=== PATIENT | female | born 1960 | race Hispanic/Latino ===

== ENCOUNTER → 2023-10-03 10:01 | Outpatient (REF) | payer OTHER, SELFPAY | LOC: RAD 10:01 | PROVIDERS: ATTENDING PHYSICIAN Nurse Practitioner Adult Health | DX: M25.812 Other specified joint disorders, left shoulder (principal) | CPT/HCPCS: 73030 ==

== ENCOUNTER → 2023-10-26 10:12 | Outpatient (REF) | payer OTHER, SELFPAY ==
[2023-10-26 11:01] LABS: ALT (SGPT) 17 U/L (0-35); AST (SGOT) 22 U/L (14-36); Albumin 4.3 g/dl (3.5-5.0); Alkaline Phosphatase 75 U/L (38-126); Blood Urea Nitrogen 14 mg/dl (7-17); Calcium 9.2 mg/dl (8.4-10.2); Carbon Dioxide 24 mmol/L (22-30); Chloride 104 mmol/L (98-107); Glucose 148 mg/dl (70-99); HDL Cholesterol 38 mg/dl; LDL Cholesterol, Calculated 128 mg/dl; Potassium 4.4 mmol/L (3.5-5.1); Sodium 138 mmol/L (135-145); Total Bilirubin 0.7 mg/dl (0.2-1.3); Total Cholesterol 214 mg/dl (50-199); Triglyceride 241 mg/dl (10-149); Very Low Density Lipoprotein 48 mg/dl (0-30); eGFR > 60.00
[2023-10-26 11:17] LABS: Vitamin D, 25-OH*** 24.3 ng/mL (30-80)
[2023-10-26 11:41] LABS: Glycohemoglobin (HgbA1c) 6.7 % (4.0-5.6)
[2023-10-26 12:33] LABS: Microalbumin, Random Urine <0.6 mg/dl (0.6-1.7)
== END ==
LOC: CLINIC 10:12
PROVIDERS: ATTENDING PHYSICIAN Nurse Practitioner Adult Health
DX: E55.9 Vitamin D deficiency, unspecified (principal); E11.69 Type 2 diabetes mellitus with other specified complication; E78.5 Hyperlipidemia, unspecified
CPT/HCPCS: 80053; 80061; 82043; 82306; 82570; 83036

== ENCOUNTER → 2024-02-06 09:28 | Outpatient (REF) | payer OTHER, SELFPAY ==
[2024-02-06 10:26] LABS: Glycohemoglobin (HgbA1c) 6.8 % (4.0-5.6)
[2024-02-06 10:41] LABS: ALT (SGPT) 18 U/L (0-35); AST (SGOT) 27 U/L (14-36); Albumin 4.4 g/dl (3.5-5.0); Alkaline Phosphatase 69 U/L (38-126); Blood Urea Nitrogen 17 mg/dl (7-17); Calcium 9.3 mg/dl (8.4-10.2); Carbon Dioxide 25 mmol/L (22-30); Chloride 106 mmol/L (98-107); Glucose 105 mg/dl (70-99); HDL Cholesterol 44 mg/dl; LDL Cholesterol, Calculated 131 mg/dl; Potassium 4.4 mmol/L (3.5-5.1); Sodium 138 mmol/L (135-145); Total Bilirubin 1.1 mg/dl (0.2-1.3); Total Cholesterol 215 mg/dl (50-199); Total Protein 7.1 g/dl (6.3-8.2); Triglyceride 203 mg/dl (10-149); Very Low Density Lipoprotein 40 mg/dl (0-30); eGFR > 60.00
[2024-02-06 10:59] LABS: Vitamin D, 25-OH*** 28.9 ng/mL (30-80)
== END ==
LOC: CLINIC 09:28
PROVIDERS: ATTENDING PHYSICIAN Nurse Practitioner Adult Health
DX: E11.69 Type 2 diabetes mellitus with other specified complication (principal); E78.5 Hyperlipidemia, unspecified; E55.9 Vitamin D deficiency, unspecified
CPT/HCPCS: 36415; 80053; 80061; 82306; 83036

== ENCOUNTER → 2024-06-26 07:53 | Outpatient (REF) | payer OTHER, SELFPAY ==
[2024-06-26 09:22] LABS: ALT (SGPT) 22 U/L (0-35); AST (SGOT) 27 U/L (14-36); Albumin 4.6 g/dl (3.5-5.0); Alkaline Phosphatase 80 U/L (38-126); Blood Urea Nitrogen 17 mg/dl (7-17); Calcium 9.9 mg/dl (8.4-10.2); Carbon Dioxide 25 mmol/L (22-30); Chloride 104 mmol/L (98-107); Glucose 117 mg/dl (70-99); HDL Cholesterol 45 mg/dl; LDL Cholesterol, Calculated 66 mg/dl; Potassium 4.7 mmol/L (3.5-5.1); Sodium 140 mmol/L (135-145); Total Cholesterol 132 mg/dl (50-199); Total Protein 7.3 g/dl (6.3-8.2); Triglyceride 107 mg/dl (10-149); Very Low Density Lipoprotein 21 mg/dl (0-30); eGFR > 60.00
[2024-06-26 09:40] LABS: Vitamin D, 25-OH*** 29.2 ng/mL (30-80)
[2024-06-26 10:13] LABS: Vitamin B12 769 pg/ml (239-931)
[2024-06-26 10:46] LABS: Glycohemoglobin (HgbA1c) 8.2 % (4.0-5.6)
== END ==
LOC: REG 07:53
PROVIDERS: ATTENDING PHYSICIAN Nurse Practitioner Adult Health
DX: E55.9 Vitamin D deficiency, unspecified (principal); E11.69 Type 2 diabetes mellitus with other specified complication; E53.8 Deficiency of other specified B group vitamins; E78.5 Hyperlipidemia, unspecified
CPT/HCPCS: 36415; 80053; 80061; 82306; 82607; 83036

== ENCOUNTER → 2024-11-25 08:21 | Outpatient (REF) | payer OTHER, SELFPAY ==
[2024-11-25 11:03] LABS: Glycohemoglobin (HgbA1c) 7.7 % (4.0-5.6)
[2024-11-25 12:17] LABS: ALT (SGPT) 16 U/L (0-35); AST (SGOT) 23 U/L (14-36); Albumin 4.3 g/dl (3.5-5.0); Alkaline Phosphatase 87 U/L (38-126); Blood Urea Nitrogen 18 mg/dl (7-17); Calcium 9.6 mg/dl (8.4-10.2); Carbon Dioxide 24 mmol/L (22-30); Chloride 108 mmol/L (98-107); Glucose 141 mg/dl (70-99); Potassium 4.5 mmol/L (3.5-5.1); Sodium 139 mmol/L (135-145); Total Bilirubin 0.8 mg/dl (0.2-1.3); Total Protein 7.2 g/dl (6.3-8.2); eGFR > 60.00
[2024-11-25 17:06] LABS: Microalbumin, Random Urine < 0.6 mg/dl (0.6-1.7)
[2024-11-25 18:09] LABS: Vitamin D, 25-OH*** 38.1 ng/mL (30-80)
[2024-11-25 18:46] LABS: Vitamin B12 360 pg/ml (239-931)
== END ==
LOC: CLINIC 08:21
PROVIDERS: ATTENDING PHYSICIAN Nurse Practitioner Adult Health
DX: E11.69 Type 2 diabetes mellitus with other specified complication (principal); E53.8 Deficiency of other specified B group vitamins; E55.9 Vitamin D deficiency, unspecified
CPT/HCPCS: 36415; 80053; 82043; 82306; 82570; 82607; 83036

== ENCOUNTER → 2025-04-09 11:09 | Outpatient (REF) | payer OTHER, SELFPAY ==
[2025-04-09 12:32] LABS: Glycohemoglobin (HgbA1c) 6.9 % (4.0-5.6)
[2025-04-09 12:56] LABS: ALT (SGPT) 17 U/L (0-35); AST (SGOT) 24 U/L (14-36); Albumin 4.4 g/dl (3.5-5.0); Alkaline Phosphatase 81 U/L (38-126); Blood Urea Nitrogen 16 mg/dl (7-17); Calcium 9.2 mg/dl (8.4-10.2); Carbon Dioxide 25 mmol/L (22-30); Chloride 106 mmol/L (98-107); Glucose 105 mg/dl (70-99); Potassium 4.6 mmol/L (3.5-5.1); Sodium 137 mmol/L (135-145); Total Protein 7.0 g/dl (6.3-8.2); eGFR > 60.00
== END ==
LOC: CLINIC 11:09
PROVIDERS: ATTENDING PHYSICIAN Nurse Practitioner Adult Health
DX: E11.69 Type 2 diabetes mellitus with other specified complication (principal)
CPT/HCPCS: 36415; 80053; 83036

== ENCOUNTER → 2025-07-24 08:24 | Outpatient (REF) | payer OTHER, SELFPAY ==
[2025-07-24 09:44] LABS: ALT (SGPT) 16 U/L (0-35); AST (SGOT) 21 U/L (14-36); Albumin 4.2 g/dl (3.5-5.0); Alkaline Phosphatase 88 U/L (38-126); Blood Urea Nitrogen 17 mg/dl (7-17); Calcium 9.2 mg/dl (8.4-10.2); Carbon Dioxide 24 mmol/L (22-30); Chloride 105 mmol/L (98-107); Glucose 130 mg/dl (70-99); HDL Cholesterol 41 mg/dl; LDL Cholesterol, Calculated 136 mg/dl; Sodium 137 mmol/L (135-145); Total Protein 7.0 g/dl (6.3-8.2); Very Low Density Lipoprotein 32 mg/dl (0-30); eGFR > 60.00
[2025-07-24 10:06] LABS: Potassium 4.4 mmol/L (3.5-5.1)
[2025-07-24 10:07] LABS: Glycohemoglobin (HgbA1c) 9.9 % (4.0-5.9); Vitamin D, 25-OH*** 27.8 ng/mL (30-80)
[2025-07-24 10:40] LABS: Vitamin B12 459 pg/ml (239-931)
== END ==
LOC: CLINIC 08:24
PROVIDERS: ATTENDING PHYSICIAN Nurse Practitioner Adult Health
DX: E11.69 Type 2 diabetes mellitus with other specified complication (principal); E78.5 Hyperlipidemia, unspecified; E53.8 Deficiency of other specified B group vitamins; E55.9 Vitamin D deficiency, unspecified
CPT/HCPCS: 36415; 80053; 80061; 82306; 82607; 83036